=== PATIENT | female | born 1985 | race Caucasian/White ===

== ENCOUNTER 2017-10-31 14:48 | Emergency (ER) | payer MEDICAID ==
[~2017-10-31] VITALS: Ht 160 cm; Wt 93.0 kg
[2017-10-31 15:12] VITALS: BP_SYST 158
[2017-10-31] MEDS ORDERED: IBUPROFEN 800 MG TABLET PO ONE (16:00)
[2017-10-31 17:17] VITALS: BP_SYST 130
== END 2017-10-31 17:17 | disposition home or self-care (01) ==
LOC: SED 14:48
DX: J06.9 Acute upper respiratory infection, unspecified (principal); R03.0 Elevated blood-pressure reading, without diagnosis of hypertension; F41.9 Anxiety disorder, unspecified; Z88.6 Allergy status to analgesic agent
CPT/HCPCS: 36415; 81025; 86710; 93005; 99285